=== PATIENT | male | born 1980 | race Caucasian/White ===

== ENCOUNTER 2017-08-23 11:17 | Emergency (ER) | payer SELFPAY ==
[2017-08-23 11:48] VITALS: BP 120/70
--- NOTE | 2017-08-23 12:21 | Emergency Department Report ---
ED ENT HPI - General Chief complaint: Sore Throat Stated complaint: FEVER/SORE THROAT Time Seen by Provider: 08/23/17 12:15 Source: patient, family Mode of arrival: Ambulatory Limitations: No Limitations - History of Present Illness Initial comments: Patient airport fever and sore throat for 2 days. Also report bodyache. He said he took [place] pain pill which is called [place] for fever. He was not able to tell me how high his temperature was. Last time he took pain medication was less than before he went to bed. Patient also reports that he feels hot and cold. He reports pain with swallowing and difficulty swallowing due to pain pain is 8 out of 10 and is also completing the headache that comes and goes. Achy. Pain to his throat is achy only with swallowing. He denies any drooling, coughing, nasal drainage, shortness of breath or chest pain. Denies any medical problems. MD complaint: sore throat, difficulty swallowing Onset/Timin -: days(s) Location: throat Severity: severe Severity scale (0 -10): 8 Quality: aching Consistency: intermittent (worst with swallowing) Improves with: other (medication) Worsens with: swallowing Context-Epistaxis: other (exposure to family with strep) Associated Symptoms: fever, pain with swallowing, sore throat. denies: cough, gum swelling, toothache, tinnitus, hearing loss, discharge from ear, rhinorrhea - Related Data Previous Rx's Medication Instructions Recorded Last Taken Type Ibuprofen [Motrin] 600 mg PO Q8H PRN 5 Days #15 tablet 08/23/17 Unknown Rx Penicillin V Potassium 500 mg PO Q8H 10 Days #30 tablet 08/23/17 Unknown Rx Allergies Allergy/AdvReac Type Severity Reaction Status Date / Time No Known Allergies Allergy Unverified 08/23/17 11:48 ED Dental HPI - General Chief complaint: Sore Throat Stated complaint: FEVER/SORE THROAT Time Seen by Provider: 08/23/17 12:15 Source: patient Mode of arrival: Ambulatory Limitations: No Limitations - Related Data Previous Rx's Medication Instructions Recorded Last Taken Type Ibuprofen [Motrin] 600 mg PO Q8H PRN 5 Days #15 tablet 08/23/17 Unknown Rx Penicillin V Potassium 500 mg PO Q8H 10 Days #30 tablet 08/23/17 Unknown Rx Allergies Allergy/AdvReac Type Severity Reaction Status Date / Time No Known Allergies Allergy Unverified 08/23/17 11:48 ED Review of Systems ROS: Stated complaint: FEVER/SORE THROAT Other details as noted in HPI Comment: All other systems reviewed and negative Constitutional: chills, fever Eyes: eye discharge ENT: throat pain, congestion. denies: ear pain Respiratory: no symptoms reported Cardiovascular: denies: chest pain, palpitations, edema, syncope Gastrointestinal: denies: abdominal pain, nausea, vomiting, diarrhea Musculoskeletal: myalgia. denies: back pain, joint swelling, arthralgia Skin: denies: rash Neurological: headache. denies: weakness, numbness, paresthesias, abnormal gait , vertigo ED Past Medical Hx - Past Medical History Previous Medical History?: No - Surgical History Past Surgical History?: No - Family History Family history: no significant - Social History Smoking Status: Never Smoker Substance Use Type: Alcohol, Non Opiate Pain - Medications Home Medications: Home Medications Medication Instructions Recorded Confirmed Last Taken Type Ibuprofen [Motrin] 600 mg PO Q8H PRN 5 Days #15 tablet 08/23/17 Unknown Rx Penicillin V Potassium 500 mg PO Q8H 10 Days #30 tablet 08/23/17 Unknown Rx ED Physical Exam - General Limitations: No Limitations General appearance: alert, in no apparent distress - Head Head exam: Present: atraumatic, normocephalic, normal inspection - Eye Eye exam: Present: normal appearance, PERRL, EOMI Pupils: Present: normal accommodation - ENT ENT exam: Present: mucous membranes moist, TM's normal bilaterally, normal external ear exam, other (no frontal or maxillary sinus tenderness. The mucosa without any erythema, swelling or drainage.). Absent: normal exam, normal orophraynx - Expanded ENT Exam Expanded Mouth exam: Present: normal external inspection. Absent: drooling, trismus, muffled voice, tongue normal, tongue elevation, laceration Teeth exam: Present: normal inspection Throat exam: Positive: other (patient positive pharyngeal erythema with exudate. ). Negative: normal inspection, tonsillar erythema, tonsillomegaly, tonsillar exudate, R peritonsillar mass, L peritonsillar mass - Neck Neck exam: Present: normal inspection, lymphadenopathy, other (No C-spine tenderness). Absent: tenderness, meningismus, full ROM, thyromegaly - Respiratory Respiratory exam: Present: normal lung sounds bilaterally. Absent: respiratory distress, wheezes, rales, rhonchi, stridor, chest wall tenderness, accessory muscle use - Cardiovascular Cardiovascular Exam: Present: normal rhythm, tachycardia, normal heart sounds. Absent: systolic murmur, diastolic murmur - GI/Abdominal GI/Abdominal exam: Present: soft, normal bowel sounds. Absent: distended, tenderness, guarding, rebound, rigid, organomegaly, mass, bruit, pulsatile mass , hernia - Extremities Exam Extremities exam: Present: normal inspection, full ROM, normal capillary refill , other (no clubbing, cyanosis or edema. +2 pulses to all extremities. No neurovascular compromise.). Absent: tenderness, pedal edema, joint swelling, calf tenderness - Back Exam Back exam: Present: normal inspection, full ROM, rash noted (Ambulates without any difficulties). Absent: tenderness, CVA tenderness (R), CVA tenderness (L), muscle spasm, paraspinal tenderness, vertebral tenderness - Neurological Exam Neurological exam: Present: alert, oriented X3, normal gait, reflexes normal, other (no focal neurological deficit). Absent: motor sensory deficit - Psychiatric Psychiatric exam: Present: normal affect, normal mood - Skin Skin exam: Present: warm, dry, intact, normal color. Absent: rash ED Course Vital Signs 08/23/17 08/23/17 11:44 12:22 Temperature 98.3 F Pulse Rate 125 H 100 H Respiratory 20 Rate Blood Pressure 120/70 O2 Sat by Pulse 100 Oximetry - Reevaluation(s) Reevaluation #1: 08/23/17 14:09 Patient given Motrin 800 mg emergency room for sore throat ED Medical Decision Making - Medical Decision Making D course: present with his family to emergency room complaining of sore throat, fever and body ache that started 2 days ago. Family member was diagnosed with strep throat recently. Patient is also complaining of chills. Physical finances for erythema and exudative pharyngeal area, oral Airway is patent and uvula is midline. Patient has no difficulty controlling secretions. He has enlarged cervical lymph nodes anteriorly. Based on physical findings, patient complains of fever and chills patient with strep throat and there are no need for further diagnostic testing. Patient has no respiratory symptoms and based on [facility] criteria he is with sedated pharyngitis. This was explained to patient and his family. I discussed treatment plan, diagnosis and need for follow-up. Patient was given Motrin 800 mg emergency room for sore throat. Heart rate is better. Discharged home for emergency room with his family with prescription for penicillin and Motrin and to follow-up with primary care in 3-5 days. Critical care attestation.: If time is entered above; I have spent that time in minutes in the direct care of this critically ill patient, excluding procedure time. ED Disposition Clinical Impression: Exudative pharyngitis, Anterior cervical lymphadenopathy, Fever and chills Disposition: - TO HOME OR SELFCARE Is pt being admited?: No Does the pt Need Aspirin: No Condition: Stable Instructions: Strep Throat (ED) Additional Instructions: Please increase her fluid intake Gargle with warm salt water several times a day take antibiotic as prescribed F/U with primary care physician as instructed 3-5 days and if he do not have a primary care physician U can follow-up at [facility] read discharge instructions on strep throat Prescriptions: Ibuprofen [Motrin] 600 mg PO Q8H PRN 5 Days #15 tablet PRN Reason: Pain Penicillin V Potassium 500 mg PO Q8H 10 Days #30 tablet Referrals: PRIMARY CARE, [Primary Care Provider] - 3-5 Days [facility] [Outside] - 3-5 Days Forms: Work/School Release Form(ED), Accompanied Note Print Language: DOMINICAN
[2017-08-23] MEDS ORDERED: MOTRIN PO ONE (12:22)
== END 2017-08-23 14:25 | disposition home or self-care (01) ==
LOC: ED 11:17
DX: J02.9 Acute pharyngitis, unspecified (principal); R59.0 Localized enlarged lymph nodes
CPT/HCPCS: 99282